=== PATIENT | female | born 1985 | race Two or more races ===

== ENCOUNTER 2017-01-08 00:37 | Observation (INO) | payer MEDICAID ==
[~2017-01-08 00:37] MED LIST: BENADRYL25 M3 PO; IBUPROFEN800 M1 PO; NYSTATIN15 G1 VG; PRENATAL TABLE1 EAC3 PO; [UNRECOGNIZED DRUG - OTHER] PO
== END 2017-01-08 02:15 ==
LOC: LDR 00:37
PROVIDERS: ADMIT Obstetrics & Gynecology
DX: O99.89 Other specified diseases and conditions complicating pregnancy, childbirth and the puerperium (principal); R25.8 Other abnormal involuntary movements; Z3A.32 32 weeks gestation of pregnancy; Z88.8 Allergy status to other drugs, medicaments and biological substances; Z91.048 Other nonmedicinal substance allergy status; Z98.890 Other specified postprocedural states

== ENCOUNTER 2017-01-13 11:20 | Inpatient (IN) | payer MEDICAID ==
[2017-01-13] MEDS ORDERED: LACTINEX CHEWA1 EAC1 PO (14:07)
[2017-01-13] MEDS ORDERED: KEFLEX500 M4 PO (14:08)
[2017-01-14 07:14] LABS: BASO % 0.1 % (0-2); EOS % 0.2 % (0-7); HCT-HEMATOCRIT 34.8 % (34.0-49.0); HGB-HEMOGLOBIN 12.2 gm/dl (12.0-15.5); IMMATURE GRANULOCYTES ABSOLUTE 0.04 tho/cmm (0-0.03); IMMATURE GRANULOCYTES PERCENT 0.3 % (0-0.3); LYMPH % 18.2 % (20-45); LYMPH ABSOLUTE COUNT 2.3 tho/cmm (0.8-4.5); MCH (MEAN CORPUSCULAR HGB) 28.2 pg (28.0-32.0); MCHC MEAN CORPUSCULAR HGB CONC 35.1 % (32.0-36.0); MCV (MEAN CELL VOLUME) 80.4 fl (82.0-96.0); MEAN PLATELET VOLUME 11.9 cmc (9.4-12.4); MONO % 5.5 % (0-12); MONOCYTE ABSOLUTE COUNT 0.7 tho/cmm (0.0-1.2); NEUTROPHIL ABSOLUTE COUNT 9.7 tho/cmm (1.6-8.0); NEUTROPHIL-AUTOMATED 9.7 tho/cmm (1.6-8.0); NEUTROPHILS % 75.7 % (40-80); PLATELET COUNT 165 tho/cmm (150-450); RED BLOOD COUNT 4.33 mil/cmm (4.00-5.20); RED CELL DISTRIBUTION WIDTH 13.6 % (12.4-16.4); WHITE BLOOD COUNT 12.8 tho/cmm (4.0-10.0)
[2017-01-14 07:17] LABS: ALT/SGPT 18 U/L (12-78); AST/SGOT 12 U/L (10-40); CREATININE 0.42 mg/dl (0.50-1.10); eGFR VALUE FOR BLACK >90 mL/Min
--- NOTE | 2017-01-16 05:16 | NUR ---
PT REPORTS "MY WATER HAS BROKEN". RN ASSESSES FOR SROM AND OBSERVES LIGHT AMOUNT OF BLEEDING. PT ASKS FOR ASSISTANCE TO BATHROOM. LIGHT AMOUNT OF BLEEDING AND PLUM SIZED CLOT NOTED BY RN IN TOILET. PT IS ASSISTED BACK TO BED AND PLACED ON EFM. PT REPORTS HAVING OCCASIONAL CONTRACTIONS.
[2017-01-16 06:54] LABS: BASO % 0.4 % (0-2); EOS % 0.5 % (0-7); EOSINOPHIL ABSOLUTE COUNT 0.1 tho/cmm (0.0-0.7); HCT-HEMATOCRIT 34.5 % (34.0-49.0); HGB-HEMOGLOBIN 11.9 gm/dl (12.0-15.5); IMMATURE GRANULOCYTES ABSOLUTE 0.13 tho/cmm (0-0.03); IMMATURE GRANULOCYTES PERCENT 1.2 % (0-0.3); LYMPH % 30.7 % (20-45); LYMPH ABSOLUTE COUNT 3.4 tho/cmm (0.8-4.5); MCH (MEAN CORPUSCULAR HGB) 27.7 pg (28.0-32.0); MCHC MEAN CORPUSCULAR HGB CONC 34.5 % (32.0-36.0); MCV (MEAN CELL VOLUME) 80.2 fl (82.0-96.0); MEAN PLATELET VOLUME 11.7 cmc (9.4-12.4); MONOCYTE ABSOLUTE COUNT 0.8 tho/cmm (0.0-1.2); NEUTROPHIL ABSOLUTE COUNT 6.6 tho/cmm (1.6-8.0); NEUTROPHIL-AUTOMATED 6.6 tho/cmm (1.6-8.0); NEUTROPHILS % 60.2 % (40-80); PLATELET COUNT 137 tho/cmm (150-450); RED CELL DISTRIBUTION WIDTH 13.8 % (12.4-16.4); WHITE BLOOD COUNT 10.9 tho/cmm (4.0-10.0)
[2017-01-16 07:06] LABS: ALB/GLOB RATIO 0.6 (0.8-2.0); ALBUMIN 2.4 g/dl (3.5-5.0); ALKALINE PHOSPHATASE 216 U/L (33-138); ALT/SGPT 18 U/L (12-78); ANION GAP 14 mmol/L (0-20); AST/SGOT 16 U/L (10-40); BILIRUBIN,TOTAL 0.2 mg/dl (0-1.5); BLOOD UREA NITROGEN 12 mg/dl (6-24); CALCIUM 8.1 mg/dl (8.5-10.5); CARBON DIOXIDE-VENOUS 22 mmol/L (22-32); CHLORIDE 107 mmol/l (96-110); CREATININE 0.44 mg/dl (0.50-1.10); GLUCOSE 77 mg/dL (70-110); POTASSIUM 3.6 mmol/L (3.7-5.1); SODIUM 139 mmol/L (135-145); eGFR VALUE FOR BLACK >90 mL/Min
[2017-01-17 06:09] LABS: BASO % 0.4 % (0-2); EOS % 0.6 % (0-7); EOSINOPHIL ABSOLUTE COUNT 0.1 tho/cmm (0.0-0.7); HCT-HEMATOCRIT 31.5 % (34.0-49.0); HGB-HEMOGLOBIN 10.9 gm/dl (12.0-15.5); IMMATURE GRANULOCYTES ABSOLUTE 0.05 tho/cmm (0-0.03); IMMATURE GRANULOCYTES PERCENT 0.4 % (0-0.3); LYMPH % 31.6 % (20-45); LYMPH ABSOLUTE COUNT 3.6 tho/cmm (0.8-4.5); MCH (MEAN CORPUSCULAR HGB) 27.7 pg (28.0-32.0); MCHC MEAN CORPUSCULAR HGB CONC 34.6 % (32.0-36.0); MCV (MEAN CELL VOLUME) 80.2 fl (82.0-96.0); MEAN PLATELET VOLUME 11.3 cmc (9.4-12.4); MONO % 6.1 % (0-12); MONOCYTE ABSOLUTE COUNT 0.7 tho/cmm (0.0-1.2); NEUTROPHIL ABSOLUTE COUNT 6.8 tho/cmm (1.6-8.0); NEUTROPHIL-AUTOMATED 6.8 tho/cmm (1.6-8.0); NEUTROPHILS % 60.9 % (40-80); PLATELET COUNT 121 tho/cmm (150-450); RED BLOOD COUNT 3.93 mil/cmm (4.00-5.20); RED CELL DISTRIBUTION WIDTH 13.5 % (12.4-16.4); WHITE BLOOD COUNT 11.2 tho/cmm (4.0-10.0)
[2017-01-18] MEDS ORDERED: IBUPROFEN800 M1 PO (11:32)
== END 2017-01-18 12:42 | DRG 775 ==
LOC: LDR 11:20 → OBGD 01-15 13:25 → LDR 01-16 05:58 → OBGD 01-16 20:00
PROVIDERS: Obstetrics & Gynecology; Obstetrics & Gynecology Maternal & Fetal Medicine; ADMIT Obstetrics & Gynecology
PROC: 10E0XZZ Delivery of Products of Conception, External Approach (ICD-10-PCS; principal; 2017-01-16)
DX: O13.4 Gestational [pregnancy-induced] hypertension without significant proteinuria, complicating childbirth (principal); O99.824 Streptococcus B carrier state complicating childbirth; O60.14X0 Preterm labor third trimester with preterm delivery third trimester, not applicable or unspecified; O24.429 Gestational diabetes mellitus in childbirth, unspecified control; Z3A.33 33 weeks gestation of pregnancy; Z37.0 Single live birth
CPT/HCPCS: J0690; J0702; J2590

== ENCOUNTER 2017-04-24 02:37 | Emergency (ER) | payer SELFPAY ==
[~2017-04-24 02:37] MED LIST changes: +KEFLEX500 M4 PO; +LACTINEX CHEWA1 EAC1 PO
[2017-04-24] MEDS ORDERED: PRENATAL-U CAPS1 CAP PO (02:54)
[2017-04-24 03:31] LABS: BASO % 0.4 % (0-2); BASO ABSOLUTE COUNT 0.1 tho/cmm (0.0-0.2); EOS % 1.6 % (0-7); EOSINOPHIL ABSOLUTE COUNT 0.2 tho/cmm (0.0-0.7); HCT-HEMATOCRIT 37.8 % (34.0-49.0); IMMATURE GRANULOCYTES ABSOLUTE 0.03 tho/cmm (0-0.03); IMMATURE GRANULOCYTES PERCENT 0.3 % (0-0.3); LYMPH % 30.8 % (20-45); LYMPH ABSOLUTE COUNT 3.7 tho/cmm (0.8-4.5); MCH (MEAN CORPUSCULAR HGB) 27.1 pg (28.0-32.0); MCHC MEAN CORPUSCULAR HGB CONC 34.4 % (32.0-36.0); MCV (MEAN CELL VOLUME) 78.8 fl (82.0-96.0); MEAN PLATELET VOLUME 11.1 cmc (9.4-12.4); MONOCYTE ABSOLUTE COUNT 0.6 tho/cmm (0.0-1.2); NEUTROPHIL ABSOLUTE COUNT 7.4 tho/cmm (1.6-8.0); NEUTROPHIL-AUTOMATED 7.4 tho/cmm (1.6-8.0); NEUTROPHILS % 61.9 % (40-80); PLATELET COUNT 222 tho/cmm (150-450); RED CELL DISTRIBUTION WIDTH 12.7 % (12.4-16.4); WHITE BLOOD COUNT 11.9 tho/cmm (4.0-10.0)
[2017-04-24 03:42] LABS: ANION GAP 13 mmol/L (0-20); BLOOD UREA NITROGEN 10 mg/dl (6-24); CALCIUM 8.8 mg/dl (8.5-10.5); CARBON DIOXIDE-VENOUS 26 mmol/L (22-32); CHLORIDE 105 mmol/l (96-110); CREATININE 0.67 mg/dl (0.50-1.10); GLUCOSE 95 mg/dL (70-110); POTASSIUM 3.6 mmol/L (3.7-5.1); PREGNANCY-SERUM NEGATIVE (NEGATIVE); SODIUM 140 mmol/L (135-145); eGFR VALUE FOR BLACK >90 mL/Min
[2017-04-24] MEDS ORDERED: CLINDAMYCIN HC300 M2 PO (05:44)
== END 2017-04-24 06:02 ==
LOC: EDMED 02:37
PROVIDERS: Emergency Medicine
DX: K11.5 Sialolithiasis (principal)
CPT/HCPCS: Q9967